=== PATIENT | female | born 2000 | race Caucasian/White ===

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

== ENCOUNTER → 2021-10-08 | Outpatient (REF) | payer BC, OTHER ==
[~2021-10-08] MED LIST: BUPR150T12 PO; RITA5TAB PO; seroquel PO
== END ==
LOC: M SFHCWAGY 17:09
PROVIDERS: ATTEND Advanced Practice Midwife
DX: Z36.89 Encounter for other specified antenatal screening (principal); Z3A.00 Weeks of gestation of pregnancy not specified